=== PATIENT | female | born 1955 | race Caucasian/White ===

== ENCOUNTER 2022-10-19 14:01 | Inpatient (IN) ==
[2022-10-19] MEDS ORDERED: fentaNYL citrate PF 100 MCG/2 ML VIAL IV ONE (15:29)
--- NOTE | 2022-10-19 15:44 | Emergency Department Note ---
Impression & Plan Multiple fractures of ribs ED Provider Note HISTORY OF PRESENT ILLNESS: Patient is a 66-year-old female presenting with left upper back pain and shortness of breath. Patient was seen yesterday and diagnosed with 3 posterior rib fractures. She reports that she had felt better after the analgesics given in the emergency department and thought that she could go home, though she r eports that the physician recommended she stay. She states that since waking up this morning she has had excruciating pain in her left upper back. She reports that she took the oxycodone that was prescribed to her without any relief in symptoms. She denies any anterior chest pain. Reports she has been trying to use the incentive spirometer but it hurts too much to breathe. Denies any anticoagulation use. ROS: as above PHYSICAL EXAM: Constitutional: Patient appears in no acute distress. HENT: Head: Normocephalic and atraumatic. Eyes: EOMI, PERRL Mouth/Throat: Mucous membranes moist. Neck: Trachea midline. Neck supple. Cardiovascular: RRR, No murmurs, rubs or gallops. Intact distal pulses. Pulmonary/Chest: No respiratory distress. Breath sounds clear and equal bilaterally. No wheezes or rales. Left lateral and posterior chest is tender to palpation. No evidence of flail chest or ecchymosis Abdominal: BS +. Abdomen soft, no tenderness, rebound or guarding. Back: No midline spinal tenderness, no paraspinal tenderness, no CVA tenderness. Musculoskeletal: No edema, tenderness or deformity noted. Skin: Warm and dry. No rash, erythema, pallor or cyanosis Psychiatric: Appropriate mood and affect for situation. Neurological: Alert and keenly responsive. CN II-XII grossly intact, moving all extremities equally and fully. MDM: - Vitals signs showed hypertension. - History obtained via patient. Patient presents with left upper back pain and shortness of breath. Patient was diagnosed with rib fractures yesterday after a fall off the ladder. She was given to go opioids yesterday and reports she took them this morning without any relief in her symptoms. Reports her pain is significantly worse this morning and she feels like she cannot breathe. - Chronic conditions affecting care: depression/anxiety; HLD; fibromyalgia; hypothyroidism - Differential diagnoses include, but are not limited to: Rib fractures; pneumothorax; ACS - Order placed for continuous cardiac monitoring. At this time, monitor showed rate of 75 bpm with normal sinus rhythm, per my interpretation. - External medical records reviewed. CT chest imaging from yesterday was rev iewed and patient has posterior left eighth through 10th rib fractures - EKG reviewed by myself showed normal sinus rhythm. Rate 65 bpm. QTc 409. No acute ischemic changes. - Laboratory workup interpreted by myself showed normal WBC; stable electrolytes - CXR negative for pneumothorax, per my interpretation. - Patient given 50 mcg IV fentanyl in ER. On reassessment, patient reports continued pain. - Given patient's continued pain, will admit for observation for pain management - Discussion was had with social insurance adviser about patient's case and need for admission for observation. - Hospitalist, Dr. Schilling, consulted for admission. - Patient admitted to [facility] for further evaluation and management. ASSESSMENT AND PLAN: Diagnosis: Multiple left-sided posterior rib fractures Plan: Admission Past Med/Surg History Medical History Anxiety Chronic gastritis Degenerative disc disease Depression Depression Dyslipidemia Elevated LFTs Fatty liver Fibromyalgia Fibromyalgia GERD (gastroesophageal reflux disease) Hiatal hernia with gastroesophageal reflux History of colon polyps Hypothyroidism Hypothyroidism Lumbar spinal stenosis Pneumonia Schatzki's ring Seasonal allergies Shortness of Breath Spinal stenosis Vitamin D deficiency Surgical History History of cardiac cath History of carpal tunnel surgery of right wrist History of cholecystectomy History of colonoscopy History of esophagogastroduodenoscopy (EGD) History of lumbar spinal fusion History of repair of left rotator cuff History of thumb surgery History of tonsillectomy History of total abdominal hysterectomy and bilateral salpingo-oophorectomy History of wisdom tooth extraction Family History Mother Family history of reaction to anesthesia nausea Grandmother Myocardial infarction Grandfather Myocardial infarction Father Lung cancer Other FHx: cancer Denies family history of Ovarian cancer Prostate cancer Breast cancer Colorectal cancer Social History Smoking Status: Never smoker Second Hand Exposure: Yes (parents smoked); Hx Alcohol Use: No Hx Substance Use: No Preferred Language: Central [place] Communication Ability: Effective Visual Impairment: No Limitations Hearing Ability: Normal Craft Manager Required: No Beliefs That Will Affect Care: None marital status: Current Living Situation: Alone current occupational status: employed and other Feels Safe at Home: Yes Childhood Exposure to Second-Hand Smoke: Yes caffeine: Yes during the past year weight has: increased > 10 lbs Dental Care, Regularly: No Physical Activity Frequency: Daily Physical Activity Frequency Comment: work Seatbelt Use: always Sunscreen Use: No Assistive Devices: None Allergies Allergies Allergy/AdvReac Type Severity Reaction Status Date / Time erythromycin base Allergy Unknown heart Verified 04/01/22 12:42 palpitations clarithromycin AdvReac Mild Nausea Verified 04/01/22 12:42 Home Meds Previous Rx's Medication Instructions Recorded atorvastatin 20 mg tablet 20 mg PO QPM #90 tabs 04/01/22 sulfamethoxazole 800 1 tab PO BID 5 days #10 tabs 04/01/22 mg-trimethoprim 160 mg tablet levothyroxine 75 mcg tablet 75 mcg PO QAM #90 tabs 04/22/22 trazodone 50 mg tablet 50 mg PO HS #90 tabs 08/22/22 omeprazole 20 mg capsule,delayed 20 mg PO BID #180 caps 08/27/22 release meloxicam 7.5 mg tablet 7.5 mg PO DAILY #30 tabs 09/09/22 venlafaxine 150 mg 150 mg PO QAM #90 caps 09/26/22 capsule,extended release 24 hr oxycodone 5 mg tablet 5 mg PO Q6H PRN pain #20 tabs 10/18/22 Results & Data (ED) Vital Signs Vital Signs - 24 hr 10/19/22 14:15 10/19/22 15:53 10/19/22 16:34 Temperature 36.6 C Temperature Source Temporal Artery Scan Pulse Rate 68 85 Pulse Rate [Apical] 77 Respiratory Rate 18 18 Respiratory Effort / Characteristics Non-Labored Spontaneous Respiratory Depth Normal Blood Pressure 159/93 H Blood Pressure [Right Arm] 139/79 Blood Pressure Mean 115 Blood Pressure Mean [Right Arm] 99 Pulse Oximetry 96 95 Oxygen Delivery Method Room Air Sepsis Recent Fever Within 48 Hours No Sepsis New/Unexplained Change in Mental Status N/A Sepsis Action Taken by Nursing No Action Required Laboratory Data 10/19/22 16:07 10/19/22 16:07 Lab Results 04/10/19/22 10/19/22 Range/Units 16:07 16:07 16:07 WBC 7.13 (4.8-10.8) K/ul RBC 4.32 (4.20-5.40) M/uL Hgb 12.3 (12.0-16.0) g/dl Hct 37.3 (37.0-47.0) % MCV 86.3 (80.0-100.0) fL MCH 28.5 (25.0-34.0) pg MCHC 33.0 (32.0-36.0) g/dL RDW Std Deviation 43.3 (36.4-46.3) fL RDW Coeff of Jaye 13.8 (11.5-14.5) % Plt Count 270 (130-400) K/uL MPV 11.1 (9.4-12.4) fL Immature Gran % (Auto) 0.1 % Neut % (Auto) 75.9 % Lymph % (Auto) 13.2 % [place] % (Auto) 5.5 % Eos % (Auto) 5.0 % Baso % (Auto) 0.3 % Neut # (Auto) 5.41 (1.40-6.50) K/uL Lymph # (Auto) 0.94 L (1.2-3.4) K/uL [place] # (Auto) 0.39 (0.11-0.59) K/uL Eos # (Auto) 0.36 (0-0.50) K/uL Baso # (Auto) 0.02 (0-0.2) K/uL Immature Gran # (Auto) 0.01 (0.01-0.20) K/uL PT 10.0 (9.0-12.0) Seconds INR 0.9 (0.9-1.1) APTT 22.2 (21.0-31.0) Seconds PTT Ratio 0.8 Sodium 139 (136-145) mmol/L Potassium 4.3 (3.5-5.1) mmol/L Chloride 105 (98-107) mmol/L Carbon Dioxide 27 (21-32) mmol/L Anion Gap 7 (3-11) BUN 14 (6-23) mg/dl Creatinine 0.99 (0.6-1.2) mg/dl Est Cr Clr Drug Dosing 67.0 ml/min Est GFR ( Amer) 69.3 ml/min Est GFR (Non-Af Amer) 59.8 ml/min BUN/Creatinine Ratio 14.1 (10-20) Glucose 108 H (70-99(Fasting)) mg/dl Calcium 9.6 (8.6-10.3) mg/dl Total Bilirubin 0.4 (0.2-1.0) mg/dl AST 26 (13-39) U/L ALT 18 (7-52) U/L Alkaline Phosphatase 99 (34-104) U/L Troponin I High Sens 4.8 (0-14) pg/ml Total Protein 6.1 (6.0-8.3) gm/dl Albumin 3.7 (3.4-5.0) gm/dl Globulin 2.4 L (2.5-4.0) gm/dl Albumin/Globulin Ratio 1.5 (0.9-2) Administered Medications Discontinued Medications Fentanyl Citrate (Fentanyl Citrate Pf 100 Mcg/2 Ml Vial) 50 mcg IV NOW ONE Stop: 10/19/22 15:30 Last Admin: 10/19/22 16:25 Dose: 50 mcg Documented By: [facility] Imaging Data Radiologist's Impression: Chest X-Ray 10/19/22 15:29 XR chest 1V portable HISTORY: 66 years-old Female shortness of breath; rib fractures acute shortness of breath COMPARISON: Chest CT 10/18/2022 TECHNIQUE: AP view of the chest FINDINGS: Cardiac silhouette is enlarged. Mild interstitial coarsening. No pneumothorax, large pleural effusion or overt pulmonary edema. Acute left-sided rib fractures are better seen on the prior CT. Degenerative changes of the shoulders and line. IMPRESSION: 1. Cardiomegaly without acute process. 2. Acute left-sided rib fractures are better seen on the comparison chest CT. 3. No pneumothorax. ACT 112: Negative or not required by law. The above report was generated using voice recognition software. It may contain grammatical, syntax or spelling errors. Electronically signed by: Srikanth Rivas M.D. 10/19/2022 4:01 PM Discharge Plan Visit Data Chief Complaint: Rib Injury/Pain Stated Complaint: RIB PAIN - FRACTURES WA SEEN LAST NIGHT ED Provider: Tiny Finch Discharge Problem: Multiple fractures of ribs Forms Stand Alone Forms: My [facility] Prescriptions Prescriptions: No Action levothyroxine 75 mcg tablet 75 mcg PO QAM Qty: 90 1RF trazodone 50 mg tablet 50 mg PO HS Qty: 90 3RF omeprazole 20 mg capsule,delayed release(DR/EC) 20 mg PO BID Qty: 180 1RF meloxicam 7.5 mg tablet 7.5 mg PO DAILY Qty: 30 2RF venlafaxine 150 mg capsule,extended release 24hr 150 mg PO QAM Qty: 90 1RF sulfamethoxazole-trimethoprim 800-160 mg tablet 1 tab PO BID 5 Days Qty: 10 0RF atorvastatin 20 mg tablet 20 mg PO QPM Qty: 90 1RF oxycodone 5 mg tablet 5 mg PO Q6H PRN (Reason: pain) Qty: 20 0RF Rx Instructions: May cause drowsiness Referrals Referrals: Arnie Gee CRNP [Primary Care Provider] -
--- NOTE | 2022-10-19 16:02 | XRay Report ---
XR chest 1V portable HISTORY: 66 years-old Female shortness of breath; rib fractures acute shortness of breath COMPARISON: Chest CT 10/18/2022 TECHNIQUE: AP view of the chest FINDINGS: Cardiac silhouette is enlarged. Mild interstitial coarsening. No pneumothorax, large pleural effusion or overt pulmonary edema. Acute left-sided rib fractures are better seen on the prior CT. Degenerati ve changes of the shoulders and line. IMPRESSION: 1. Cardiomegaly without acute process. 2. Acute left-sided rib fractures are better seen on the comparison chest CT. 3. No pneumothorax. ACT 112: Negative or not required by law. The above report was generated using voice recognition software. It may contain grammatical, syntax o r spelling errors. Electronically signed by: Srikanth Rivas M.D. 10/19/2022 4:01 PM
[2022-10-19 16:31] LABS: Basophils # (auto) 0.02 K/uL (0-0.2); Basophils % (auto) 0.3 %; Eosinophils # (auto) 0.36 K/uL (0-0.50); Hematocrit (blood only) 37.3 % (37.0-47.0); Hemoglobin 12.3 g/dl (12.0-16.0); Immature Granulocytes # (auto) 0.01 K/uL (0.01-0.20); Immature Granulocytes % (auto) 0.1 %; Lymphocytes # (auto) 0.94 K/uL (1.2-3.4); Lymphocytes % (auto) 13.2 %; Mean Corpuscular Hemoglobin 28.5 pg (25.0-34.0); Mean Corpuscular Volume 86.3 fL (80.0-100.0); Mean Platelet Volume 11.1 fL (9.4-12.4); Monocytes # (auto) 0.39 K/uL (0.11-0.59); Monocytes % (auto) 5.5 %; Neutrophils # (auto) 5.41 K/uL (1.40-6.50); Neutrophils % (auto) 75.9 %; Platelet Count 270 K/uL (130-400); RDW Coefficient of Variation 13.8 % (11.5-14.5); RDW Standard Deviation 43.3 fL (36.4-46.3); Red Blood Count 4.32 M/uL (4.20-5.40); White Blood Count 7.13 K/ul (4.8-10.8)
[2022-10-19 16:45] LABS: Albumin Globulin Ratio 1.5 (0.9-2); Albumin Level 3.7 gm/dl (3.4-5.0); BUN Creatinine Ratio 14.1 (10-20); Bilirubin,Total 0.4 mg/dl (0.2-1.0); Calcium 9.6 mg/dl (8.6-10.3); Est GFR (African American) 69.3 ml/min; Est GFR (Non-African American) 59.8 ml/min; Globulin 2.4 gm/dl (2.5-4.0); Potassium 4.3 mmol/L (3.5-5.1); Total Protein 6.1 gm/dl (6.0-8.3)
[2022-10-19 16:51] LABS: Troponin I High Sensitivity 4.8 pg/ml (0-14)
[2022-10-19 16:55] LABS: INR 0.9 (0.9-1.1); Partial Thromboplastin Ratio 0.8; Partial Thromboplastin Time 22.2 Seconds (21.0-31.0)
[2022-10-19] MEDS ORDERED: oxyCODONE HCL IR 5 MG TAB (IMMEDIATE RELEASE) PO PRN (17:42)
--- NOTE | 2022-10-19 17:42 | History & Physical Report ---
Date of Service October 19, 2022 Assessment & Plan (1) Uncontrolled pain: Plan: -Admit to med/surge -Patient sustained left 8th-10th non-displaced rib fractures yesterday after her fall, was unable to get adequate pain control at home with 5 mg PO oxycodone and Ibuprofen -Stable on RA, no acute changes on CXR today -Start pain control with the following >Q6h PO tylenol scheduled >Lidocaine patch and heat >Dilaudid, 1 mg IV q4h prn pain 4,5,6+ -Will consult pain management for further assistance -Monitor on continuous pulse oximetry -BL SCD's for DVT PPX -Am CBC, BMP (2) Fracture of ribs, multiple, closed: Plan: -See uncontrolled pain -Incentive spirometry ordered (3) Hypothyroidism: Plan: -Continue levothyroxine (4) Dyslipidemia: Plan: -Conitnue statin (5) Depression: Plan: -Continue venlafaxine (6) Chronic gastritis: Plan: -PO pantoprazole while admitted Plan The patient was discussed with Dr. Schilling at the time of the admission History of Present Illness Chief Complaint: Uncontrolled rib pain Primary Care Provider: ANASTASIA Joaquin Mel is a 66 year old female with a PMH significant for fibromyalgia, depression, dyslipidemia, hypothyroidism who presented to the [facility] ED on 10/19/22 due to uncontrolled pain from recent rib fractures. The patient came to our ED yesterday after after sustaining a fall from the 3rd step of a ladder and landing on a stool on her left side. Her workup revealed non-displaced left lateral 8th-10th rib fractures. Inpatient admission was offered at that time but she felt comfortable enough to go home at that time. She was discharged home with 5 mg PO Oxycodone for pain. In the ED today Vitals, labs, and CXR were stable. At the time of the exam the patient was sitting in bed, any movement of her torso causes severe left- sided chest pain. She states that since going home she has been using the oxycodone as prescribed and was also taking Ibuprofen. Unfortunately her pain is uncontrolled to the point that she is unable to take moderate-deep breaths at this time. She is frustrated that she needs to be admitted as she thought she could tough it out at home. The fentanyl she received in the ED worked initially but is starting to phillips off. She is a full code and wishes for children to make medical decisions for her if she cannot make them herself. Please refer to Dr. Schilling's attestation for any changes to the treatment plan Allergies Allergy/AdvReac Type Severity Reaction Status Date / Time erythromycin base Allergy Unknown heart Verified 04/01/22 12:42 palpitations clarithromycin AdvReac Mild Nausea Verified 04/01/22 12:42 Home Medications Medication Instructions Recorded Confirmed Type atorvastatin 20 mg tablet 20 mg PO QPM #90 tabs 04/01/22 10/19/22 Rx levothyroxine 75 mcg tablet 75 mcg PO QAM #90 tabs 04/22/22 10/19/22 Rx trazodone 50 mg tablet 50 mg PO HS #90 tabs 08/22/22 10/19/22 Rx omeprazole 20 mg capsule,delayed 20 mg PO BID #180 caps 08/27/22 10/19/22 Rx release meloxicam 7.5 mg tablet 7.5 mg PO DAILY #30 tabs 09/09/22 10/19/22 Rx venlafaxine 150 mg 150 mg PO QAM #90 caps 09/26/22 10/19/22 Rx capsule,extended release 24 hr oxycodone 5 mg tablet 5 mg PO Q6H PRN pain #20 tabs 10/18/22 10/19/22 Rx Past Med/Surg History Medical History Anxiety Chronic gastritis Degenerative disc disease Depression Depression unspecified depression type Dyslipidemia Elevated LFTs Fatty liver Fibromyalgia Fibromyalgia GERD (gastroesophageal reflux disease) Hiatal hernia with gastroesophageal reflux History of colon polyps Hypothyroidism Hypothyroidism Lumbar spinal stenosis Pneumonia 05/2019 Schatzki's ring Seasonal allergies Shortness of Breath Spinal stenosis Vitamin D deficiency Surgical History History of cardiac cath 1999, no stents History of carpal tunnel surgery of right wrist History of cholecystectomy History of colonoscopy History of esophagogastroduodenoscopy (EGD) History of lumbar spinal fusion x2 L2, L3, L4, L5--hardware in place History of repair of left rotator cuff History of thumb surgery right thumb x7--hardware in place History of tonsillectomy History of total abdominal hysterectomy and bilateral salpingo-oophorectomy History of wisdom tooth extraction Family History Mother Family history of reaction to anesthesia nausea Grandmother Myocardial infarction Grandfather Myocardial infarction Father Lung cancer Other FHx: cancer Denies family history of Ovarian cancer Prostate cancer Breast cancer Colorectal cancer Social History Smoking Status: Never smoker Second Hand Exposure: No; Hx Alcohol Use: No Hx Substance Use: No Preferred Language: [place] Communication Ability: Effective Visual Impairment: No Limitations Hearing Ability: Normal Innovations Paraprofessional Required: No Beliefs That Will Affect Care: None marital status: Current Living Situation: Alone current occupational status: employed and other Feels Safe at Home: Yes Childhood Exposure to Second-Hand Smoke: Yes caffeine: Yes during the past year weight has: increased > 10 lbs Dental Care, Regularly: No Physical Activity Frequency: Daily Physical Activity Frequency Comment: work Seatbelt Use: always Sunscreen Use: No Assistive Devices: Cane Physical Exam Physical Exam: Physical Exam: General: In acute distress due to pain with movement, stated age, well-n ourished, good hygiene HEENT: Normocephalic, atraumatic, no scleral icterus, pupils around round, symmetrical, and reactive to light, moist mucus membranes, trachea midline, no thyromegaly Chest/Pulm: No respiratory distress, symmetrical chest expansion but unable to take deep breaths, clear breath sounds throughout Cardiac: RRR, no murmurs noted Abdomen: Negative for ascites and bruising, normoactive bowel sounds, soft, non-tender to palpation throughout Musculoskeletal: No bruising or significant trauma noted on inspection of the chest, Symmetrical and without signs of acute trauma, upper and lower extremities with full ROM, no atrophy, spasticity, or flaccidity Extremities: Radial, dorsalis pedis, and posterior tibial pulses are intact and symmetrical, no edema noted in the BL LE's Skin: Warm, dry, no rashes , lesions, or scars noted Neuro: Alert and oriented to person, place, month, year, and president, no focal defects, CN II-XII tested and intact, no tremors noted Psych: acute distress when her pain hits, otherwise calm, polite, and cooperative during the exam Results & Data Results & Data Vital Signs (Past 12 Hours) Vital Signs Temp Pulse Pulse Resp BP BP Pulse Ox 10/19/22 16:34 77 18 139/79 95 10/19/22 15:53 85 10/19/22 14:15 36.6 C 68 18 159/93 H 96 O2 Del Method 10/19/22 16:34 Room Air 10/19/22 15:53 10/19/22 14:15 Laboratory Results Abnormal lab results 10/19/22 10/19/22 Range/Units 16:07 16:07 Lymph # (Auto) 0.94 L (1.2-3.4) K/uL Glucose 108 H (70-99(Fasting)) mg/dl Globulin 2.4 L (2.5-4.0) gm/dl Diagnostic Findings Chest X-Ray 10/19/22 15:29 XR chest 1V portable HISTORY: 66 years-old Female shortness of breath; rib fractures acute shortness of breath COMPARISON: Chest CT 10/18/2022 TECHNIQUE: AP view of the chest FINDINGS: Cardiac silhouette is enlarged. Mild interstitial coarsening. No pneumothorax, large pleural effusion or overt pulmonary edema. Acute left-sided rib fractures are better seen on the prior CT. Degenerative changes of the shoulders and line. IMPRESSION: 1. Cardiomegaly without acute process. 2. Acute left-sided rib fractures are better seen on the comparison chest CT. 3. No pneumothorax. ACT 112: Negative or not required by law. The above report was generated using voice recognition software. It may contain grammatical, syntax or spelling errors. Electronically signed by: Srikanth Rivas M.D. 10/19/2022 4:01 PM ECG Additional Comments: Poor data quality, interpretation may be adversely affected Normal sinus rhythm Normal ECG When compared with ECG of 18-OCT-2022 10:25, No significant change was found Code Status & VTE Plan Code Status Full code VTE Prophylaxis Plan VTE Prophylaxis will be ordered: Yes Supervising Physician Co-Signing Physician Notes I personally saw and examined the patient. I verified all franco points and agree with Alejandro Amaya PA-C with the following exceptions and/or additions: 66 year old female presents to the ER with uncontrolled pain from recent rib fractures, getting intermittent sudden spasms of pain. O/E HS RRR, no murmurs, Chest CTAB, Pain over palpation of left lower chest, Abdo SNT A/P Rib fractures 8th through 10th ribs - acetaminophen 650mg PO q6h, lidocaine patch, fexeril 5mg PO TID, Dilaudid 1mg as needed for breakthrough pain, consult pain management PG Care Time/CCT Total # of Minutes Spent Total Time Spent with Patient: Total time spent is greater than 50% in coordination of care (as documented) at patient's floor/unit and/or counseling patient: Coding [place] [address] INT INP/OBS CARE 2/55MIN Patient Type Established Medical Decision Making Moderate Complexity Diagnoses Uncontrolled pain R52 Fracture of ribs, multiple, closed S22.42XA Encounter type: initial encounter Laterality: left Hypothyroidism E03.9 Dyslipidemia E78.5 Depression F32.9 Chronic gastritis K29.50 (2) Fracture of ribs, multiple, closed Encounter type: initial encounter Laterality: left Qualified Code(s): S22.42XA - Multiple fractures of ribs, left side, initial encounter for closed fracture
[2022-10-19] MEDS ORDERED: LIDOCAINE 5% 1 PATCH TD SCH (17:45)
[2022-10-19] MEDS: HYDROmorphone INJ 1 MG/ML SYRINGE IV PRN ×2 (18:12→22:27)
[2022-10-19] MEDS ORDERED: CYCLOBENZAPRINE HCL 5 MG TAB PO STA (19:53)
[2022-10-19] MEDS: ACETAMINOPHEN 325 MG TAB PO SCH (20:49)
[2022-10-19] MEDS: PANTOprazole 40 MG TAB PO SCH (20:50)
[2022-10-19] MEDS: ATORVASTATIN 20 MG TAB PO SCH (20:50)
[2022-10-19] MEDS ORDERED: Nursing to Pharmacy Communication SCH (21:30)
[2022-10-20] MEDS: ACETAMINOPHEN 325 MG TAB PO SCH ×4 (02:24→19:37)
[2022-10-20] MEDS: HYDROmorphone INJ 1 MG/ML SYRINGE IV PRN ×4 (02:27→23:20)
[2022-10-20] MEDS: LEVOTHYROXINE SODIUM 75 MCG TABLET PO SCH (05:41)
[2022-10-20 06:48] LABS: Hematocrit (blood only) 36.6 % (37.0-47.0); Hemoglobin 11.7 g/dl (12.0-16.0); Mean Corpuscular Hemoglobin 28.5 pg (25.0-34.0); Mean Corpuscular Volume 89.3 fL (80.0-100.0); Mean Platelet Volume 10.7 fL (9.4-12.4); Platelet Count 242 K/uL (130-400); RDW Coefficient of Variation 13.6 % (11.5-14.5); RDW Standard Deviation 44.7 fL (36.4-46.3); White Blood Count 4.85 K/ul (4.8-10.8)
[2022-10-20 07:06] LABS: BUN Creatinine Ratio 12.8 (10-20); Calcium 9.4 mg/dl (8.6-10.3); Creatinine Clr Calc Pharmacy 74.5 ml/min; Est GFR (African American) 73.8 ml/min; Est GFR (Non-African American) 63.7 ml/min; Magnesium 1.8 mg/dl (1.7-2.4); Potassium 4.6 mmol/L (3.5-5.1)
[2022-10-20] MEDS: CYCLOBENZAPRINE HCL 5 MG TAB PO SCH ×4 (08:39→19:38)
[2022-10-20] MEDS: PANTOprazole 40 MG TAB PO SCH ×2 (08:40→19:38)
[2022-10-20] MEDS: VENLAFAXINE HCL XR 150 MG CAPXR PO SCH (08:41)
[2022-10-20] MEDS ORDERED: PANTOprazole 40 MG TAB PO SCH (09:00)
--- NOTE | 2022-10-20 14:07 | Electrocardiogram Report ---
Test Reason : Blood Pressure : / mmHG Vent. Rate : 065 BPM Atrial Rate : 065 BPM P-R Int : 156 ms QRS Dur : 080 ms QT Int : 394 ms P-R-T Axes : 044 015 049 degrees QTc Int : 409 ms Poor data quality, interpretation may be adversely affected Normal sinus rhythm Normal ECG When compared with ECG of 18-OCT-2022 10:25, No significant change was found Confirmed by Shankar Saleh ([id number]) on 10/20/2022 2:07:37 PM Referred By: REFERRED SELF Confirmed By:Shankar Saleh
--- NOTE | 2022-10-20 15:32 | Hospitalist Progress Note ---
Date of Service October 20, 2022 Assessment & Plan (1) Uncontrolled pain: Plan: -Patient sustained left 8th-10th non-displaced rib fractures yesterday after her fall, was unable to get adequate pain control at home with 5 mg PO oxycodone and Ibuprofen -Stable on RA, no acute changes on CXR today -Start pain control with the following >Q6h PO tylenol scheduled >Lidocaine patch and heat >Dilaudid, 1 mg IV q4h prn pain 4,5,6+ -consult pain management for further assistance Encourage incentive spirometry -Monitor on continuous pulse oximetry -BL SCD's for DVT PPX -Am CBC, BMP (2) Fracture of ribs, multiple, closed: Plan: -See uncontrolled pain -Incentive spirometry ordered (3) Hypothyroidism: Plan: -Continue levothyroxine (4) Dyslipidemia: Plan: -Conitnue statin (5) Depression: Plan: -Continue venlafaxine (6) Chronic gastritis: Plan: -PO pantoprazole while admitted Admission and Anticipated Discharge Date Admission Date: October 19, 2022 Subjective Patient still has significant pain from rib fractures. Has been using IV narcotics. Review of Systems Review of Systems: All systems reviewed & are unremarkable except as noted in HPI & below Physical Exam Physical Exam: General: Awake, conversant Heart: S1, S2/regular rate and rhythm, no murmur rubs or gallops Lungs: Clear to auscultation bilaterally. Normal effort. Afraid to take deep breath in due to pain Abdomen: Soft/nontender/nondistended. No hepatosplenomegaly Extremities: No clubbing/cyanosis. No edema Behavior: Appropriate, cooperative Results & Data Results & Data Vital Signs (Past 12 Hours) Vital Signs Temp Pulse Resp BP Pulse Ox O2 Del Method 10/20/22 07:53 36.7 C 73 18 115/69 94 Room Air Laboratory Results Abnormal lab results 10/19/22 10/19/22 10/20/22 Range/Units 16:07 16:07 05:58 RBC 4.10 L (4.20-5.40) M/uL Hgb 11.7 L (12.0-16.0) g/dl Hct 36.6 L (37.0-47.0) % Lymph # (Auto) 0.94 L (1.2-3.4) K/uL Carbon Dioxide (21-32) mmol/L Anion Gap (3-11) Glucose 108 H (70-99(Fasting)) mg/dl Globulin 2.4 L (2.5-4.0) gm/dl 10/20/22 Range/Units 05:58 RBC (4.20-5.40) M/uL Hgb (12.0-16.0) g/dl Hct (37.0-47.0) % Lymph # (Auto) (1.2-3.4) K/uL Carbon Dioxide 33 H (21-32) mmol/L Anion Gap 2 L (3-11) Glucose (70-99(Fasting)) mg/dl Globulin (2.5-4.0) gm/dl Diagnostic Findings Chest X-Ray 10/19/22 15:29 XR chest 1V portable HISTORY: 66 years-old Female shortness of breath; rib fractures acute shortness of breath COMPARISON: Chest CT 10/18/2022 TECHNIQUE: AP view of the chest FINDINGS: Cardiac silhouette is enlarged. Mild interstitial coarsening. No pneumothorax, large pleural effusion or overt pulmonary edema. Acute left-sided rib fractures are better seen on the prior CT. Degenerative changes of the shoulders and line. IMPRESSION: 1. Cardiomegaly without acute process. 2. Acute left-sided rib fractures are better seen on the comparison chest CT. 3. No pneumothorax. ACT 112: Negative or not required by law. The above report was generated using voice recognition software. It may contain grammatical, syntax or spelling errors. Electronically signed by: Srikanth Rivas M.D. 10/19/2022 4:01 PM PG Care Time/CCT Total # of Minutes Spent Total Time Spent with Patient: Total time spent is greater than 50% in coordination of care (as documented) at patient's floor/unit and/or counseling patient: Coding Level of Care Code 71419 SUB INP/OBS CARE 2/35MIN Diagnoses Uncontrolled pain R52 Fracture of ribs, multiple, closed S22.42XA Encounter type: initial encounter Laterality: left Hypothyroidism E03.9 Dyslipidemia E78.5 Depression F32.9 Chronic gastritis K29.50 (2) Fracture of ribs, multiple, closed Encounter type: initial encounter Laterality: left Qualified Code(s): S22.42XA - Multiple fractures of ribs, left side, initial encounter for closed fracture
[2022-10-20] MEDS: LIDOCAINE 5% 1 PATCH TD SCH (19:36)
[2022-10-20] MEDS: ATORVASTATIN 20 MG TAB PO SCH (19:37)
[2022-10-21] MEDS: ACETAMINOPHEN 325 MG TAB PO SCH ×4 (02:59→20:42)
[2022-10-21] MEDS: HYDROmorphone INJ 1 MG/ML SYRINGE IV PRN (03:20)
[2022-10-21] MEDS: LEVOTHYROXINE SODIUM 75 MCG TABLET PO SCH (05:37)
[2022-10-21 08:23] LABS: Hematocrit (blood only) 38.1 % (37.0-47.0); Hemoglobin 12.1 g/dl (12.0-16.0); Mean Corpuscular Hemoglobin 28.3 pg (25.0-34.0); Mean Corpuscular Hgb Conc 31.8 g/dL (32.0-36.0); Mean Platelet Volume 10.6 fL (9.4-12.4); Platelet Count 247 K/uL (130-400); RDW Coefficient of Variation 13.6 % (11.5-14.5); RDW Standard Deviation 44.4 fL (36.4-46.3); Red Blood Count 4.28 M/uL (4.20-5.40); White Blood Count 4.76 K/ul (4.8-10.8)
[2022-10-21] MEDS: CYCLOBENZAPRINE HCL 5 MG TAB PO SCH ×3 (08:30→20:42)
[2022-10-21] MEDS: VENLAFAXINE HCL XR 150 MG CAPXR PO SCH (08:30)
[2022-10-21] MEDS: PANTOprazole 40 MG TAB PO SCH ×2 (08:30→20:41)
[2022-10-21 08:38] LABS: BUN Creatinine Ratio 14.6 (10-20); Calcium 9.4 mg/dl (8.6-10.3); Creatinine Clr Calc Pharmacy 65.8 ml/min; Est GFR (African American) 66.1 ml/min; Magnesium 1.8 mg/dl (1.7-2.4); Potassium 4.1 mmol/L (3.5-5.1)
[2022-10-21] MEDS ORDERED: IBUPROFEN 800 MG TAB PO PRN (08:39)
--- NOTE | 2022-10-21 08:39 | Pain Management Consultation ---
Date of Consultation October 21, 2022 Assessment & Plan (1) Uncontrolled pain: (2) Fracture of ribs, multiple, closed: Encounter type: initial encounter Laterality: left Qualified Code(s): S22.42XA - Multiple fractures of ribs, left side, initial encounter for closed fracture Plan 1. Continue Lidocaine patches. 2. I have ordered Oxycodone at 10mg x 4 hours for pain. 3. Ibuprofen 800mg TID for pain. 4. IV Dilaudid order will remain if needed for breakthrough pain. 5. We discussed intercostal nerve blocks as an option but with only short term pain relief this was deferred. Thank you for the consultation. Please contact with questions/concerns. History of Present Illness Reason for Consultation: Rib pain Attending Physician: Sara Park MD History of Present Illness This is a 66 year old female that fell onto a ladder and sustained left 8th through 10th rib fractures on 10/18/22. She was sent home with a prescription for #20 Oxycodone 5mg tablets. She took the Oxycodone once that evening and once the next morning without any significant pain relief and also without side effects. She returned to the Emergency Department and admitted for uncontrolled pain. Currently receiving Dilaudid IV 1mg x 4 hours with adequate relief. Case discussed with Dr. Eli Ernandez Allergies Allergy/AdvReac Type Severity Reaction Status Date / Time erythromycin base Allergy Unknown heart Verified 04/01/22 12:42 palpitations clarithromycin AdvReac Mild Nausea Verified 04/01/22 12:42 Home Medications Medication Instructions Recorded Confirmed Type atorvastatin 20 mg tablet 20 mg PO QPM #90 tabs 04/01/22 10/19/22 Rx levothyroxine 75 mcg tablet 75 mcg PO QAM #90 tabs 04/22/22 10/19/22 Rx trazodone 50 mg tablet 50 mg PO HS #90 tabs 08/22/22 10/19/22 Rx omeprazole 20 mg capsule,delayed 20 mg PO BID #180 caps 08/27/22 10/19/22 Rx release meloxicam 7.5 mg tablet 7.5 mg PO DAILY #30 tabs 09/09/22 10/19/22 Rx venlafaxine 150 mg 150 mg PO QAM #90 caps 09/26/22 10/19/22 Rx capsule,extended release 24 hr oxycodone 5 mg tablet 5 mg PO Q6H PRN pain #20 tabs 10/18/22 10/19/22 Rx Patient History Medical History Anxiety Chronic gastritis Degenerative disc disease Depression Depression unspecified depression type Dyslipidemia Elevated LFTs Fatty liver Fibromyalgia Fibromyalgia GERD (gastroesophageal reflux disease) Hiatal hernia with gastroesophageal reflux History of colon polyps Hypothyroidism Hypothyroidism Lumbar spinal stenosis Pneumonia 05/2019 Schatzki's ring Seasonal allergies Shortness of Breath Spinal stenosis Vitamin D deficiency Surgical History History of cardiac cath 1999, no stents History of carpal tunnel surgery of right wrist History of cholecystectomy History of colonoscopy History of esophagogastroduodenoscopy (EGD) History of lumbar spinal fusion x2 L2, L3, L4, L5--hardware in place History of repair of left rotator cuff History of thumb surgery right thumb x7--hardware in place History of tonsillectomy History of total abdominal hysterectomy and bilateral salpingo-oophorectomy History of wisdom tooth extraction Family History Mother Family history of reaction to anesthesia nausea Grandmother Myocardial infarction Grandfather Myocardial infarction Father Lung cancer Other FHx: cancer Denies family history of Ovarian cancer Prostate cancer Breast cancer Colorectal cancer Social History Smoking Status: Never smoker Second Hand Exposure: No; Do You Dip or Chew Tobacco: No; Tobacco Cessation Education Requested by Patient: No Hx Alcohol Use: No Hx Substance Use: No Preferred Language: Cambodian Communication Ability: Effective Visual Impairment: No Limitations Hearing Ability: Normal Inspector Motor Vehicles Required: No Beliefs That Will Affect Care: None marital status: Current Living Situation: Alone current occupational status: employed and other Other Information That Helps Us Care for You: No Feels Safe at Home: Yes Safety Concerns: Feels Safe At This Time Childhood Exposure to Second-Hand Smoke: Yes caffeine: Yes during the past year weight has: increased > 10 lbs Dental Care, Regularly: No Physical Activity Frequency: Daily Physical Activity Frequency Comment: work Seatbelt Use: always Sunscreen Use: No Assistive Devices: None Physical Exam Physical Exam: GENERAL: This is a 66 year old female that does not appear in acute distress. HEAD/FACE: Normocephalic and atraumatic. EYES: No drainage or conjunctival injection. ENT: Nose without bleeding or discharge. Oral mucosa moist. NECK: Full ROM without apparent pain. No swelling or masses noted. RESPIRATORY: Patient with unlabored breathing. No signs of respiratory distress. CHEST/AXILLA: Chest movement symmetrical. No deformities noted. SKIN: [place], warm and dry. No rash noted. MS/EXTREMITY: No swelling, no deformities. Moving extremities appropriately. NEURO: Alert and appears oriented. Speech is fluent. Cranial Nerves are grossly intact. PSYCH: Alert, pleasant, affect is calm
--- NOTE | 2022-10-21 14:28 | Hospitalist Progress Note ---
Date of Service October 21, 2022 Assessment & Plan (1) Uncontrolled pain: Plan: -Patient sustained left 8th-10th non-displaced rib fractures after her fall, was unable to get adequate pain control at home with 5 mg PO oxycodone and Ibuprofen -Stable on RA, no acute changes on CXR today -Pain management on board. Recommended the followin. continue Lidocaine patches. 2.Oxycodone at 10mg x 4 hours for pain ordered. 3. Ibuprofen 800mg TID for pain. 4. IV Dilaudid order will remain if needed for breakthrough pain. Encourage incentive spirometry -Monitor on continuous pulse oximetry -BL SCD's for DVT PPX (2) Fracture of ribs, multiple, closed: Plan: -See uncontrolled pain -Incentive spirometry ordered (3) Hypothyroidism: Plan: -Continue levothyroxine (4) Dyslipidemia: Plan: -Conitnue statin (5) Depression: Plan: -Continue venlafaxine (6) Chronic gastritis: Plan: -PO pantoprazole while admitted Admission and Anticipated Discharge Date Admission Date: October 21, 2022 Subjective Patient says that she does not have pain when she is laying still in bed. Any movement causes pain. She has been doing the incentive spirometry exercises. Review of Systems Review of Systems: All systems reviewed & are unremarkable except as noted in Subjective Physical Exam Physical Exam: General: Awake, conversant Heart: S1, S2/regular rate and rhythm, no murmur rubs or gallops Lungs: Clear to auscultation bilaterally. Normal effort. Afraid to take deep breath in due to pain Abdomen: Soft/nontender/nondistended. No hepatosplenomegaly Extremities: No clubbing/cyanosis. No edema Behavior: Appropriate, cooperative Results & Data Results & Data Vital Signs (Past 12 Hours) Vital Signs Temp Pulse Resp BP Pulse Ox O2 Del Method 10/21/22 07:28 36.6 C 78 16 118/77 94 Room Air PG Care Time/CCT Total # of Minutes Spent Total Time Spent with Patient: Total time spent is greater than 50% in coordination of care (as documented) at patient's floor/unit and/or counseling patient: Coding Level of Care Code 12873 SUB INP/OBS CARE 2/35MIN Diagnoses Uncontrolled pain R52 Fracture of ribs, multiple, closed S22.42XA Encounter type: initial encounter Laterality: left Hypothyroidism E03.9 Dyslipidemia E78.5 Depression F32.9 Chronic gastritis K29.50 (2) Fracture of ribs, multiple, closed Encounter type: initial encounter Laterality: left Qualified Code(s): S22.42XA - Multiple fractures of ribs, left side, initial encounter for closed fracture
[2022-10-21] MEDS: oxyCODONE HCL IR 5 MG TAB (IMMEDIATE RELEASE) PO PRN (17:52)
[2022-10-21] MEDS ORDERED: COUGH DROP (SUGAR FREE) LOZ 24 LOZ/1 BOX BUCCAL ONE (19:40)
[2022-10-21] MEDS: ATORVASTATIN 20 MG TAB PO SCH (20:41)
[2022-10-21] MEDS: LIDOCAINE 5% 1 PATCH TD SCH (20:42)
[2022-10-22] MEDS: ACETAMINOPHEN 325 MG TAB PO SCH ×4 (02:56→20:30)
[2022-10-22] MEDS: LEVOTHYROXINE SODIUM 75 MCG TABLET PO SCH (06:01)
[2022-10-22] MEDS: oxyCODONE HCL IR 5 MG TAB (IMMEDIATE RELEASE) PO PRN ×3 (06:02→22:35)
[2022-10-22 07:23] LABS: Hematocrit (blood only) 39.3 % (37.0-47.0); Hemoglobin 12.8 g/dl (12.0-16.0); Mean Corpuscular Hemoglobin 28.3 pg (25.0-34.0); Mean Corpuscular Hgb Conc 32.6 g/dL (32.0-36.0); Mean Corpuscular Volume 86.8 fL (80.0-100.0); Mean Platelet Volume 10.4 fL (9.4-12.4); Platelet Count 260 K/uL (130-400); RDW Coefficient of Variation 13.5 % (11.5-14.5); RDW Standard Deviation 43.1 fL (36.4-46.3); Red Blood Count 4.53 M/uL (4.20-5.40); White Blood Count 4.85 K/ul (4.8-10.8)
[2022-10-22 07:40] LABS: BUN Creatinine Ratio 17.9 (10-20); Calcium 9.5 mg/dl (8.6-10.3); Creatinine Clr Calc Pharmacy 71.4 ml/min; Est GFR (African American) 72.8 ml/min; Est GFR (Non-African American) 62.9 ml/min; Magnesium 1.8 mg/dl (1.7-2.4); Potassium 3.6 mmol/L (3.5-5.1)
[2022-10-22] MEDS: PANTOprazole 40 MG TAB PO SCH ×2 (08:32→20:31)
[2022-10-22] MEDS: VENLAFAXINE HCL XR 150 MG CAPXR PO SCH (08:32)
[2022-10-22] MEDS: CYCLOBENZAPRINE HCL 5 MG TAB PO SCH ×2 (09:56→20:31)
--- NOTE | 2022-10-22 17:05 | Hospitalist Progress Note ---
Date of Service October 22, 2022 Assessment & Plan (1) Fracture of ribs, multiple, closed: Plan: acute nondisplaced left lateral 8th through 10th rib fractures pain slowly improving / under control with oxycodone prn stop lidoderm; change to voltaren gel 4gm qid cont flexeril 5mg BID stop dilaudid heating pad if desired check 25-OH vit D level am fortunately all imaging has not shown complicating pneumothorax (2) Hypothyroidism: Plan: continue levothyroxine last TSH was 1 year ago repeat TSH am for stability (3) Dyslipidemia: Plan: Cont statin (4) Depression: Plan: Continue venlafaxine (5) Chronic gastritis: Plan: cont PPI will need bowel regimen while on oral oxycodone to that end add senna 2 tabs daily may need miralax as well (or fiber) (6) Obesity (BMI 30-39.9): Plan: BMI 38.9 Plan anticipate d/c home in am tomorrow Admission and Anticipated Discharge Date Admission Date: October 21, 2022 Subjective has not used any IV dilaudid x 24+ hours she does not feel that the lidoderm patches help using oxycodone and this has allowed her to be comfortable, take deeper breaths, etc eating ok moving about more easily and more comfortably moving bowels thinks she can likely d/c home tomorrow Review of Systems Review of Systems: cv - left sided chest wall pain but nothing central or on the right pulm - no dyspnea or MELGAR GI - no abd pain Physical Exam Physical Exam: gen - obese, mild pain with moving about in the bed mouth - MMM neck - no JVD heart - RRR, s1 s2, no murmur chest - tender left flank region to palpation/left lower costal margin on side lungs - CTA b/l, normal airation left lung abd - soft NT ND BS+ ext - no edema, pulses 2+ b/l Results & Data Results & Data Vital Signs (Past 12 Hours) Vital Signs Temp Pulse Resp BP Pulse Ox O2 Del Method 10/22/22 15:59 36.8 C 73 18 121/80 93 Room Air 10/22/22 11:50 36.7 C 72 18 116/64 100 Room Air 10/22/22 07:24 36.3 C L 70 19 124/74 95 Room Air Laboratory Results Laboratory Results - last 24 hr 10/22/22 10/22/22 06:54 06:54 WBC 4.85 RBC 4.53 Hgb 12.8 Hct 39.3 MCV 86.8 MCH 28.3 MCHC 32.6 RDW Std Deviation 43.1 RDW Coeff of Jaye 13.5 Plt Count 260 MPV 10.4 Sodium 139 Potassium 3.6 Chloride 106 Carbon Dioxide 26 Anion Gap 7 BUN 17 Creatinine 0.95 Est Cr Clr Drug Dosing 71.4 Est GFR ( Amer) 72.8 Est GFR (Non-Af Amer) 62.9 BUN/Creatinine Ratio 17.9 Glucose 95 Calcium 9.5 Magnesium 1.8 PG Care Time/CCT Total # of Minutes Spent Total Time Spent with Patient: Total time spent is greater than 50% in coordination of care (as documented) at patient's floor/unit and/or counseling patient: Coding Level of Care Code 66416 SUB INP/OBS CARE 2/35MIN Diagnoses Fracture of ribs, multiple, closed S22.42XA Encounter type: initial encounter Laterality: left Hypothyroidism E03.9 Dyslipidemia E78.5 Depression F32.9 Chronic gastritis K29.50 Obesity (BMI 30-39.9) E66.9 (1) Fracture of ribs, multiple, closed Encounter type: initial encounter Laterality: left Qualified Code(s): S22.42XA - Multiple fractures of ribs, left side, initial encounter for closed fracture
[2022-10-22] MEDS: SENNA 8.6 MG TAB PO SCH (18:24)
[2022-10-22] MEDS: ATORVASTATIN 20 MG TAB PO SCH (20:30)
[2022-10-22] MEDS: DICLOFENAC SOD 1% GEL 100 GM TUBE EXT SCH (20:31)
[2022-10-23] MEDS: oxyCODONE HCL IR 5 MG TAB (IMMEDIATE RELEASE) PO PRN (02:57)
[2022-10-23] MEDS: ACETAMINOPHEN 325 MG TAB PO SCH ×2 (03:23→08:06)
[2022-10-23] MEDS: LEVOTHYROXINE SODIUM 75 MCG TABLET PO SCH (06:13)
[2022-10-23] MEDS: VENLAFAXINE HCL XR 150 MG CAPXR PO SCH (08:04)
[2022-10-23] MEDS: PANTOprazole 40 MG TAB PO SCH (08:04)
[2022-10-23] MEDS: SENNA 8.6 MG TAB PO SCH (08:04)
[2022-10-23] MEDS: DICLOFENAC SOD 1% GEL 100 GM TUBE EXT SCH (08:05)
[2022-10-23] MEDS: CYCLOBENZAPRINE HCL 5 MG TAB PO SCH (08:05)
--- NOTE | 2022-10-23 10:44 | Discharge Summary ---
Date of Service October 23, 2022 Admission HPI Per Admitting Provider Mel is a 66 year old female with a PMH significant for fibromyalgia, depression, dyslipidemia, hypothyroidism who presented to the [facility] ED on 10/19/22 due to uncontrolled pain from recent rib fractures. The patient came to our ED yesterday after after sustaining a fall from the 3rd step of a ladder and landing on a stool on her left side. Her workup revealed non-displaced left lateral 8th-10th rib fractures. Inpatient admission was offered at that time but she felt comfortable enough to go home at that time. She was discharged home with 5 mg PO Oxycodone for pain. In the ED today Vitals, labs, and CXR were stable. At the time of the exam the patient was sitting in bed, any movement of her torso causes severe left- sided chest pain. She states that since going home she has been using the oxycodone as prescribed and was also taking Ibuprofen. Unfortunately her pain is uncontrolled to the point that she is unable to take moderate-deep breaths at this time. She is frustrated that she needs to be admitted as she thought she could tough it out at home. The fentanyl she received in the ED worked initially but is starting to phillips off. She is a full code and wishes for children to make medical decisions for her if she cannot make them herself. Please refer to Dr. Schilling's attestation for any changes to the treatment plan Discharge Exam gen - obese, mild pain with moving about in the bed mouth - MMM neck - no JVD heart - RRR, s1 s2, no murmur chest - tender left flank region to palpation/left lower costal margin on side lungs - CTA b/l, normal airation left lung abd - soft NT ND BS+ ext - no edema, pulses 2+ b/l Discharge Data Allergies Allergy/AdvReac Type Severity Reaction Status Date / Time erythromycin base Allergy Unknown heart Verified 04/01/22 12:42 palpitations clarithromycin AdvReac Mild Nausea Verified 04/01/22 12:42 Consultations 10/19/22 18:05 Consult Pain Management Routine Hospital Course (1) Fracture of ribs, multiple, closed: acute nondisplaced left lateral 8th through 10th rib fractures pain slowly improving / under control with oxycodone prn stop lidoderm; change to voltaren gel 4gm qid cont flexeril 5mg BID stop dilaudid heating pad if desired check 25-OH vit D level am fortunately all imaging has not shown complicating pneumothorax (2) Hypothyroidism: continue levothyroxine last TSH was 1 year ago repeat TSH am for stability (3) Dyslipidemia: Cont statin (4) Depression: Continue venlafaxine (5) Chronic gastritis: cont PPI will need bowel regimen while on oral oxycodone to that end add senna 2 tabs daily may need miralax as well (or fiber) (6) Obesity (BMI 30-39.9): BMI 38.9 Plan anticipate d/c home in am tomorrow Discharge Plan Discharge Items Patient Disposition: Home - Self-Care Reason For Visit: RIB PAIN Discharge Diagnosis: 1. acute nondisplaced left lateral 8th through 10th rib fractures 2. mild vitamin D insufficiency (your level is 28.9; normal is >30) 3. hypothyroidism Activity: As commented below Activity Comment: no heavy exertional activities until rib pain is gone/controlled Lifting: No more than 10 pounds Sexual Activity: Wait until after follow-up appointment Exercise/Sports: Wait until after follow-up appointment Driving/Machine Use: NO DRIVING if taking oxycodone pain killer medication Non-emergency contact: Primary Care Provider Call non-emergency contact if: you have any medication questions, your symptoms worsen, your pain is not controlled, your pain is worsening and you have a fever Follow-up/Referrals: Arnie Gee CRNP [Primary Care Provider] - 10/29/22 8:20 am (1 week ) Diet: Regular Addtl Attending Provider Instructions: Mrs Almendarez, Live were hospitalized due to severe pain from 3 broken ribs on the left side. Fortunately the ribs are not displaced (out of alignment), and you do not have complicating punctured lung (pneumothorax). Your pain gradually improved with muscle relaxers, pain killers, anti- inflammatories, etc. Recommendations - 1. oxycodone pain medication - * 5mg (1 tablet) every 6 hours as needed for mild to moderate pain * 10mg (2 tablets) every 6 hours as needed for severe pain * this medication will cause constipation * it can also cause sleepiness/drowsiness * thus, do not drink alcohol while taking oxycodone pain killer medication * do not drive a car while taking oxycodone 2. for prevention/treatment of constipation take 1 or both of the following - * miralax (or fiber supplement) 1 serving daily * senokot 2 tablets once daily 3. for muscle spasm/pain - * cyclobenzaprine 5mg up to twice daily as needed * this medication can also cause you to feel sleepy/drowsy * do not drive a car or drink alcohol while taking this medication 4. continue your meloxicam 7.5mg once daily as previous 5. if you feel that fzki-cjq-urebmqj voltaren (diclofenac) gel is more effective than meloxicam than simply stop the meloxicam and continue on with the voltaren gel. You can use the voltaren gel every 6 hours as needed for pain. 6. consider taking qjcz-wje-bufjtll tylenol 1000mg three times daily scheduled for pain. Sometimes the tylenol is enough to control your pain without having to take the oxycodone pain killer med. Many people, however, have to take both tylenol and oxycodone together. 7. for mildly low vitamin D take himp-ana-kublvll vitamin D supplement 2000 IU daily. 8. please INCREASE your levothyroxine to 88mcg once daily each morning. Start this tomorrow morning. Have your family doctor repeat your TSH thyroid level in 6 weeks. 9. continue your incentive spirometer device for another week to keep your l ungs nice and inflated. 10. the rib fractures will take up to 6 weeks to fully heal. Follow-up - see your family doctor in 1 week [facility] to [facility] if - * you have worsening shortness of breath * you have worsening pain despite taking all of the above medications * any other concerns It was our pleasure to care for you! -Dr Callejas Pending Studies at Discharge: No Stand-Alone Forms: My [facility], Smoking Cessation Medications and DC Order Prescriptions: New cyclobenzaprine 5 mg Tablet 5 mg PO BID PRN (Reason: muscle pain/spasm) Qty: 14 0RF levothyroxine 88 mcg capsule 88 mcg PO DAILY Qty: 30 2RF cholecalciferol (vitamin D3) 50 mcg (2,000 unit) capsule 50 mcg PO DAILY Qty: 30 2RF Rx Instructions: purchase [id number] Continued trazodone 50 mg tablet 50 mg PO HS Qty: 90 3RF omeprazole 20 mg capsule,delayed release(DR/EC) 20 mg PO BID Qty: 180 1RF meloxicam 7.5 mg tablet 7.5 mg PO DAILY Qty: 30 2RF venlafaxine 150 mg capsule,extended release 24hr 150 mg PO QAM Qty: 90 1RF atorvastatin 20 mg tablet 20 mg PO QPM Qty: 90 1RF Changed oxycodone 5 mg tablet 5 - 10 mg PO Q6H PRN (Reason: rib pain) Qty: 30 0RF Rx Instructions: May cause drowsiness Discontinued levothyroxine 75 mcg tablet 75 mcg PO QAM Qty: 90 1RF Discharge Orders: Discharge Order (Routine); Ordered 10/23/22 Ordered By: Nick Mckeon/Other Patient Handouts: Vitamin D, Rib Fracture (Broken Rib) Admission Data Admit Date/Time: 10/21/22 10:49 Attending Provider: Nick Callejas Admit Provider: Nick Schilling Primary Care Provider: Arnie Gee Other Providers: Phi Dunlap Coding Diagnoses Fracture of ribs, multiple, closed S22.42XA Encounter type: initial encounter Laterality: left Hypothyroidism E03.9 Dyslipidemia E78.5 Depression F32.9 Chronic gastritis K29.50 Obesity (BMI 30-39.9) E66.9
== END 2022-10-23 13:00 | disposition home or self-care (01) | DRG 948 ==
LOC: ED 14:01 → 3W 14:01 → SUATTDRO 17:42 → 3W 20:01 → SUATTDRO 10-21 10:49